=== PATIENT | male | born 1985 | race Caucasian/White ===

== ENCOUNTER 2017-07-03 14:18 | Outpatient (CLI) | payer OTHER ==
--- NOTE | 2017-07-03 17:05 | MRI Report ---
EXAM: RIGHT ELBOW MRI WITHOUT CONTRAST EXAM DATE: 07/03/2017 03:41 PM. CLINICAL HISTORY: Right elbow pain for 1.5 years. COMPARISON: None. TECHNIQUE: Multiplanar, multisequence T1-weighted and fluid-sensitive sequences of the elbow without contrast. Other: None. FINDINGS: Bones: No fractures or subluxations. No marrow edema. No bone lesions. Articular Cartilage: Unremarkable. Ligaments: The ulnar collateral, lateral ulnar collateral, radial collateral, and annular ligaments a re intact. Tendons: The common flexor and extensor tendons are unremarkable. The distal biceps, brachialis, and triceps tendons are unremarkable. Musculature: No edema or fatty atrophy. Other: The cubital tunnel and ulnar nerve are unremarkable. No effusion. The subcutaneous tissues are unremarkable. IMPRESSION: 1. Unremarkable MRI of the right elbow. No evidence of tendon or ligament injury. [facility]CUL[facility] SECTION Referring Provider Line: [phone] SITE ID: [id number]
== END 2017-07-03 14:19 | disposition home or self-care (01) ==
LOC: DI 14:18
PROVIDERS: ATTEND Orthopaedic Surgery
DX: M25.521 Pain in right elbow (principal)

== ENCOUNTER 2017-08-23 07:48 | Emergency (ER) | payer OTHER ==
[2017-08-23 08:00] VITALS: BP 142/101
--- NOTE | 2017-08-23 08:05 | ED Physician Documentation ---
PD HPI GI BLEED - Stated complaint Stated Complaint: BLOOD IN STOOL - Chief complaint Chief Complaint: Abd Pain - History obtained from History obtained from: Patient - History of Present Illness Timing - onset: Enter time (629), Today Timing - duration: Minutes Timing - details: Abrupt onset, Now resolved Associated symptoms: BRBPR Contributing factors: No: Sick contact, Alcohol use, Aspirin use, NSAID use, Anticoagulated Improved by: BM Similar symptoms before: No diagnosis Recently seen: Not recently seen - Additional information Additional information: Previously well 32-year-old male has come to the emergency department today after having a bowel movement work with a fair amount of blood in the commode. He has had some blood previously on the toilet paper periodically and nothing persistent and nothing of a significant quantity. Today he had blood in the toilet and on the paper. He does not have hemorrhoids that he knows of but he does feel that it is warm and tender back there. Review of Systems Constitutional: denies: Fever Eyes: denies: Decreased vision Ears: denies: Ear pain Nose: denies: Congestion Throat: denies: Sore throat Respiratory: denies: Cough GI: reports: Bloody / black stool. denies: Abdominal Pain, Nausea, Vomiting, Constipation, Diarrhea : denies: Dysuria, Frequency PD PAST MEDICAL HISTORY - Allergies Allergies/Adverse Reactions: Allergies Allergy/AdvReac Type Severity Reaction Status Date / Time No Known Drug Allergies Allergy Verified 08/23/17 08:00 PD ED PE NORMAL - Vitals Vital signs reviewed: Yes (Hypertensive) - General General: Alert and oriented X 3, No acute distress, Well developed/nourished - HEENT HEENT: Atraumatic, PERRL, EOMI - Respiratory Respiratory: No respiratory distress - Rectal Rectal: Other (There are no external hemorrhoids or hemorrhoidal tags. The spectral torn is normal and the vault is empty. There are 2 internal hemorrhoids that are engorged and there is no blood in the vault. ) - Derm Derm: Normal color, Warm and dry, No rash - Extremities Extremities: No deformity, No edema - Neuro Neuro: Alert and oriented X 3, No motor deficit, No sensory deficit, Normal speech Eye Opening: Spontaneous Motor: Obeys Commands Verbal: Oriented GCS Score: 15 - Psych Psych: Normal mood, Normal affect Results - Vitals Vitals: Vital Signs - 24 hr 08/23/17 07:50 Temperature 36.4 C L Heart Rate 81 Respiratory 18 Rate Blood Pressure 142/101 H O2 Saturation 98 Oxygen O2 Source Room air - Labs Labs: Laboratory Tests 08/23/17 08/23/17 08:16 08:16 WBC 7.9 RBC 5.59 Hgb 17.3 Hct 49.6 MCV 88.9 MCH 31.0 MCHC 34.8 RDW 13.6 Plt Count 214 MPV 8.0 Neut # 4.4 Lymph # 2.6 Mower # 0.7 Eos # 0.1 Baso # 0.1 Absolute Nucleated RBC 0.01 Nucleated RBC % 0.1 Sodium 139 Potassium 4.2 Chloride 101 Carbon Dioxide 26 Anion Gap 12.0 BUN 17 Creatinine 1.1 Estimated GFR (MDRD) 79 L Glucose 91 Calcium 9.8 Total Bilirubin 1.0 AST 18 ALT 26 Alkaline Phosphatase 44 Total Protein 7.9 Albumin 4.5 Globulin 3.4 Albumin/Globulin Ratio 1.3 Lipase 21 L PD MEDICAL DECISION MAKING - ED course Complexity details: reviewed results, re-evaluated patient, considered differential, d/w patient ED course: 32-year-old male with rectal bleeding that is resolved now has engorged internal hemorrhoids. His blood counts are checked. Departure - Departure Disposition: 01 Home, Self Care Clinical Impression: Internal hemorrhoid, bleeding GI bleeding Qualifiers: GI bleed type/associated pathology: anorectal hemorrhage Qualified Code(s): K62.5 - Hemorrhage of anus and rectum Condition: Stable Instructions: ED Hematochezia Stable, ED Hemorrhoids Follow-Up: JEFF William [Provider Group]
[2017-08-23 08:30] LABS: BASOPHILS # (AUTO) 0.1 10^3/uL (0.0-0.1); BASOPHILS % (AUTO) 0.9 %; EOSINOPHILS # (AUTO) 0.1 10^3/uL (0.0-0.7); HGB - HEMOGLOBIN 17.3 g/dL (14.0-18.0); LYMPHOCYTES # (AUTO) 2.6 10^3/uL (1.5-3.5); LYMPHOCYTES % (AUTO) 32.7 %; MEAN CORPUSCULAR HGB CONC 34.8 g/dL (32.0-36.0); MEAN CORPUSCULAR VOLUME 88.9 fL (80.0-94.0); MONOCYTES # (AUTO) 0.7 10^3/uL (0.0-1.0); MONOCYTES % (AUTO) 8.9 %; NEUTROPHILS # (AUTO) 4.4 10^3/uL (1.5-6.6); NEUTROPHILS % (AUTO) 56.5 %; PLT - PLATELET COUNT 214 10^3/uL (130-450); RED BLOOD COUNT 5.59 10^6/uL (4.70-6.10); RED CELL DISTRIBUTION WIDTH 13.6 % (12.0-15.0); WHITE BLOOD COUNT 7.9 x10^3/uL (4.8-10.8)
[2017-08-23 08:41] LABS: ALBUMIN 4.5 g/dL (3.2-5.5); ALBUMIN/GLOBULIN RATIO 1.3 (1.0-2.2); CALCIUM 9.8 mg/dL (8.5-10.3); CREATININE 1.1 mg/dL (0.6-1.2); TOTAL PROTEIN 7.9 g/dL (6.7-8.2)
== END 2017-08-23 09:49 | disposition home or self-care (01) ==
LOC: ED 07:48
DX: K64.8 Other hemorrhoids (principal); K62.5 Hemorrhage of anus and rectum
CPT/HCPCS: 36415; 80053; 83690; 85025; 99283

== ENCOUNTER 2018-01-11 08:01 | Emergency (ER) | payer OTHER ==
[2018-01-11 09:35] LABS: BASOPHILS % (AUTO) 0.4 %; EOSINOPHILS % (AUTO) 0.1 %; HGB - HEMOGLOBIN 17.1 g/dL (14.0-18.0); LYMPHOCYTES # (AUTO) 0.9 10^3/uL (1.5-3.5); LYMPHOCYTES % (AUTO) 9.5 %; MEAN CORPUSCULAR HEMOGLOBIN 30.9 pg (27.0-31.0); MEAN CORPUSCULAR HGB CONC 34.5 g/dL (32.0-36.0); MEAN CORPUSCULAR VOLUME 89.5 fL (80.0-94.0); MEAN PLATELET VOLUME 7.8 fL (7.4-11.4); MONOCYTES # (AUTO) 0.7 10^3/uL (0.0-1.0); MONOCYTES % (AUTO) 7.9 %; NEUTROPHILS # (AUTO) 7.4 10^3/uL (1.5-6.6); NEUTROPHILS % (AUTO) 82.1 %; PLT - PLATELET COUNT 158 10^3/uL (130-450); RED BLOOD COUNT 5.52 10^6/uL (4.70-6.10); RED CELL DISTRIBUTION WIDTH 13.1 % (12.0-15.0); WHITE BLOOD COUNT 9.1 x10^3/uL (4.8-10.8)
[2018-01-11] MEDS ORDERED: ONDANSETRON 4 MG/2 ML VIAL IVP STA (09:51)
[2018-01-11] MEDS ORDERED: SODIUM CHLORIDE 0.9% 1,000 ML IV ONE ×2 (09:51→10:57)
[2018-01-11 09:52] LABS: ALBUMIN 4.3 g/dL (3.2-5.5); ALBUMIN/GLOBULIN RATIO 1.3 (1.0-2.2); BILIRUBIN,TOTAL 1.4 mg/dL (0.2-1.0); CALCIUM 9.2 mg/dL (8.5-10.3); CREATININE 1.1 mg/dL (0.6-1.2); TOTAL PROTEIN 7.6 g/dL (6.7-8.2)
--- NOTE | 2018-01-11 09:54 | ED Physician Documentation ---
History of Present Illness - Stated complaint Stated Complaint: FEVER/VOMITING/NAUSEA - Chief complaint Chief Complaint: General - History obtained from History obtained from: Patient - History of Present Illness Timing: Yesterday - Additonal information Additional information: The patient is a 32-year-old [employer] male who presents with fever, nausea, and vomiting that started yesterday. He felt dizzy yesterday, and symptoms continue this morning. He denies diarrhea, dysuria, cough, or sore throat. He reports associated headache. He denies history of similar symptoms in the past. Review of Systems Constitutional: reports: Fever Ears: denies: Tinnitus/ringing Nose: denies: Congestion Throat: denies: Oral lesions / sores Cardiac: denies: Chest pain / pressure Respiratory: denies: Dyspnea, Cough GI: reports: Nausea, Vomiting. denies: Abdominal Pain, Diarrhea : denies: Dysuria Skin: denies: Rash Musculoskeletal: denies: Back pain, Extremity pain Neurologic: reports: Headache. denies: Focal weakness, Numbness PD PAST MEDICAL HISTORY - Past Medical History Cardiovascular: None Respiratory: None Endocrine/Autoimmune: None - Past Surgical History Past Surgical History: No Ortho: Other - Present Medications Home Medications: Ambulatory Orders Medication Instructions Recorded Confirmed Promethazine [Phenergan] 25 - 50 mg PO Q6H PRN #10 tab 01/11/18 - Allergies Allergies/Adverse Reactions: Allergies Allergy/AdvReac Type Severity Reaction Status Date / Time No Known Drug Allergies Allergy Verified 01/11/18 08:21 - Social History Does the pt smoke?: No Smoking Status: Never smoker Does the pt drink ETOH?: Yes Does the pt have substance abuse?: No - Immunizations Immunizations are current?: Yes PD ED PE NORMAL - Vitals Vital signs reviewed: Yes (borderline hypertension) - General General: Alert and oriented X 3, Well developed/nourished - HEENT HEENT: Atraumatic, Moist mucous membranes, Pharynx benign - Neck Neck: Supple, no meningeal sign, No adenopathy, No JVD - Cardiac Cardiac: RRR, No murmur - Respiratory Respiratory: No respiratory distress - Abdomen Abdomen: Soft, Non tender - Back Back: No CVA TTP - Derm Derm: No rash - Extremities Extremities: No edema, No calf tenderness / cord - Neuro Neuro: Alert and oriented X 3, No motor deficit, Normal speech Results - Vitals Vitals: Oxygen O2 Source Room air - Labs Labs: Laboratory Tests 01/11/18 01/11/18 01/11/18 09:23 09:23 11:10 WBC 9.1 RBC 5.52 Hgb 17.1 Hct 49.4 MCV 89.5 MCH 30.9 MCHC 34.5 RDW 13.1 Plt Count 158 MPV 7.8 Neut # (Auto) 7.4 H Lymph # (Auto) 0.9 L [place] # (Auto) 0.7 Eos # (Auto) 0.0 Baso # (Auto) 0.0 Absolute Nucleated RBC 0.00 Nucleated RBC % 0.0 Sodium 135 Potassium 3.7 Chloride 100 L Carbon Dioxide 25 Anion Gap 10.0 BUN 13 Creatinine 1.1 Estimated GFR (MDRD) 79 L Glucose 95 Calcium 9.2 Total Bilirubin 1.4 H AST 24 ALT 36 Alkaline Phosphatase 50 Total Protein 7.6 Albumin 4.3 Globulin 3.3 Albumin/Globulin Ratio 1.3 Lipase 18 L Urine Color DARK YELLOW Urine Clarity CLEAR Urine pH 6.0 Ur Specific [place] 1.025 Urine Protein NEGATIVE Urine Glucose (UA) NEGATIVE Urine Ketones NEGATIVE Urine Occult Blood NEGATIVE Urine Nitrite NEGATIVE Urine Bilirubin NEGATIVE Urine Urobilinogen 0.2 (NORMAL) Ur Leukocyte Esterase NEGATIVE Ur Microscopic Review NOT INDICATED Urine Culture Comments NOT INDICATED PD MEDICAL DECISION MAKING - ED course Complexity details: reviewed results, re-evaluated patient, considered differential, d/w patient ED course: The patient's presentation is most consistent with acute viral gastroenteritis with associated volume depletion from vomiting. His presentation does not suggest an acute abdomen, bowel obstruction, or pancreatitis. CBC reveals a normal white count of 9.1. Chemistry panel is unremarkable, and urinalysis is negative. Treatment in the emergency department included administration of normal saline 2 L IV, and ondansetron 4 mg IV. His symptoms resolved with the above treatment. He is being discharged with a prescription for Phenergan. I discussed with him the expected course of illness, symptomatic treatment and outpatient follow-up, as well as potentially worrisome signs and symptoms that should prompt reevaluation in the emergency department. - Sepsis Event Vital Signs: Oxygen O2 Source Room air Departure - Departure Disposition: 01 Home, Self Care Clinical Impression: Viral gastroenteritis, Dehydration Condition: Stable Instructions: ED Gastroenteritis Viral Follow-Up: LUCHO KEN [Physician No Access] - Prescriptions: Promethazine [Phenergan] 25 - 50 mg PO Q6H PRN #10 tab PRN Reason: Nausea / Vomiting Comments: Drink plenty of fluids. You can use Phenergan as prescribed if needed for nausea. You can use ibuprofen, up to 800 mg 3 times daily if needed for fever or discomfort. Follow up with your primary physician within 1 week if not completely resolved. Return to the emergency department if you develop persistent vomiting, recurrent dehydration, increasing abdominal pain, or otherwise worsening symptoms. Forms: Activity restrictions Discharge Date/Time: 01/11/18 13:18
[2018-01-11 11:18] LABS: GLUCOSE, URINE (UA) NEGATIVE (NEGATIVE); KETONES,URINE (UA) NEGATIVE (NEGATIVE); LEUKOCYTE ESTERASE, URINE NEGATIVE (NEGATIVE); NITRITE,URINE NEGATIVE (NEGATIVE); OCCULT BLOOD,URINE NEGATIVE (NEGATIVE); PROTEIN,URINE NEGATIVE (NEGATIVE); UROBILINOGEN,URINE 0.2 (NORMAL) E.U./dL (NORMAL)
[2018-01-11 11:27] LABS: CLARITY,URINE CLEAR (CLEAR)
[2018-01-11 11:28] LABS: BILIRUBIN,URINE NEGATIVE (NEGATIVE); ICTOTEST,URINE NEGATIVE
[2018-01-11 12:10] VITALS: BP 135/67
== END 2018-01-11 13:18 | disposition home or self-care (01) ==
LOC: ED 08:01
DX: E86.0 Dehydration (principal); A08.4 Viral intestinal infection, unspecified
CPT/HCPCS: 36415; 80053; 81001; 81003; 83690; 85025; 87086; 96361; 96374; 99283; 99284

== ENCOUNTER 2018-06-08 11:29 | Emergency (ER) | payer OTHER ==
--- NOTE | 2018-06-08 13:59 | ED Physician Documentation ---
PD HPI DYSPNEA - Stated complaint Stated Complaint: SOA - Chief complaint Chief Complaint: Resp - History obtained from History obtained from: Patient - History of Present Illness Timing - onset: How many weeks ago (1.5) Timing - onset during: Exertion Timing - duration: Seconds Timing - details: Gradual onset, Intermittant Pain level max: 0 Pain level now: 0 Inciting event(s): URI. No: Out of meds, Exercise, Exposure (ie smoke), FB / choking, Immobilization/travel, Emotional event Improved by: Rest Worsened by: Exertion Associated symptoms: Cough. No: Fever, Hemoptysis, Wheezing, Chest pain / discomfort, Palpitations, Diaphoresis, Bilateral edema, Unilateral edema Similar symptoms before: Diagnosis (Bronchitis) Recently seen: Clinic (Seen at the [facility] a week ago and had a chest x- ray no pneumonia.) - Additional information Additional information: 33-year-old male with no past medical or surgical history here with complaint of exertional shortness of breath the past 1-1/2 weeks.Stated worseWhen coughing dark yellowish phlegm.Claims he also had a fever week ago of 101. And body aches.Denies any trauma, travel, sick contact nor immobility. Patient was seen at the [facility] had a chest x-ray which did not show pneumonia but was told he may have bronchitis.Denies smoking Review of Systems Ten Systems: 10 systems reviewed and negative Constitutional: reports: Fever, Myalgias Nose: reports: Rhinorrhea / runny nose Throat: reports: Sore throat Cardiac: denies: Chest pain / pressure Respiratory: reports: Dyspnea, Cough GI: denies: Abdominal Pain, Nausea, Vomiting Skin: denies: Rash PD PAST MEDICAL HISTORY - Past Medical History Cardiovascular: None Respiratory: None Endocrine/Autoimmune: None - Past Surgical History Past Surgical History: No Ortho: Other - Present Medications Home Medications: Ambulatory Orders Medication Instructions Recorded Confirmed Acetaminophen [Tylenol] 650 mg PO Q6H PRN 06/08/18 06/08/18 Acetaminophen/Cod 300/30 [Tylenol 1 each PO Q8H #10 tablet 06/08/18 #3] Amoxicillin 1,000 mg PO Q8HR 06/08/18 06/08/18 Benzonatate 100 mg PO TID 06/08/18 06/08/18 Fluticasone [Flonase] 1 sprays JEFF BID 06/08/18 06/08/18 Ipratropium/Albuterol [Combivent 1 puffs IH Q3HR 06/08/18 06/08/18 Respimat] Meloxicam 15 mg PO DAILY 06/08/18 06/08/18 Pseudoephedrine [Sudafed] 60 mg PO Q6H 06/08/18 06/08/18 - Allergies Allergies/Adverse Reactions: Allergies Allergy/AdvReac Type Severity Reaction Status Date / Time No Known Drug Allergies Allergy Verified 06/08/18 11:36 - Social History Does the pt smoke?: No Smoking Status: Never smoker Does the pt drink ETOH?: Yes Does the pt have substance abuse?: No - Immunizations Immunizations are current?: Yes PD ED PE NORMAL - Vitals Vital signs reviewed: Yes - General General: Alert and oriented X 3, No acute distress, Well developed/nourished - HEENT HEENT: Moist mucous membranes, Pharynx benign - Neck Neck: Supple, no meningeal sign - Cardiac Cardiac: RRR, No murmur - Respiratory Respiratory: No respiratory distress, Clear bilaterally - Abdomen Abdomen: Normal bowel sounds, Soft, Non tender, Non distended - Derm Derm: Warm and dry - Extremities Extremities: No deformity - Neuro Neuro: Alert and oriented X 3 - Psych Psych: Normal mood, Normal affect Results - Vitals Vitals: Vital Signs - 24 hr 06/08/18 11:34 Temperature 36.5 C Heart Rate 90 Respiratory 18 Rate Blood Pressure 146/93 H O2 Saturation 100 Oxygen O2 Source Room air - Labs Labs: Laboratory Tests 06/08/18 13:53 Influenza A (Rapid) Negative Influenza B (Rapid) Negative PD MEDICAL DECISION MAKING - ED course Complexity details: reviewed results, re-evaluated patient ([id number] in no acute distress and nontoxic appearing but has intermittent dry cough. Lungs are clear. Patient inform of test results. He stated that he takes NyQuil at nighttime but it is not helping. Will discharge on Tylenol No. 3 and also instructed to take Benadryl for environmental allergies and help him sleep at night.), considered differential (Bronchitis, pneumonia, influenza, URI), d/w patient Departure - Departure Disposition: 01 Home, Self Care Clinical Impression: Bronchitis Condition: Good Instructions: ED Upper Resp Infec No Abx Tx, ED Viral Syndrome Prescriptions: Acetaminophen/Cod 300/30 [Tylenol #3] 1 each PO Q8H #10 tablet
--- NOTE | 2018-06-08 14:15 | XRAY Report ---
Reason: chest pain Procedure Date: 06/08/2018 Accession Number: [id number] / [id number] Procedure: XR - Chest 1 View X-Ray CPT Code: 74990 FULL RESULT: EXAM: CHEST RADIOGRAPHY EXAM DATE: 06/08/2018 02:00 PM. CLINICAL HISTORY: Cough and chest pain for several days. COMPARISON: None. TECHNIQUE: 1 view. FINDINGS: Lungs/Pleura: No focal opacities evident. No pleural effusion. No pneumothorax. Mediastinum: Within exam limitations, the cardiomediastinal contour is normal. Other: None. IMPRESSION: Normal single view chest. [facility]
[2018-06-08 15:33] VITALS: BP 125/84
== END 2018-06-08 15:33 | disposition home or self-care (01) ==
LOC: ED 11:29
DX: Z79.1 Long term (current) use of non-steroidal anti-inflammatories (NSAID) (principal); J40 Bronchitis, not specified as acute or chronic
CPT/HCPCS: 71045; 87275; 87276; 99283

== ENCOUNTER 2018-08-15 08:36 | Outpatient (CLI) | payer OTHER ==
--- NOTE | 2018-08-15 14:25 | MRI Report ---
Reason: PAIN IN LEFT SHOULDER,PAIN IN RIGHT ARM Procedure Date: 08/15/2018 Accession Number: [id number] / [id number] Procedure: MRI - Cervical Spine W/O CPT Code: FULL RESULT: MRI CERVICAL SPINE WITHOUT CONTRAST INDICATION: 33-year-old male. Left shoulder pain after a fall. Unable to raise arm above head. Also complains of pain in right arm. TECHNIQUE: 1. Sagittal STIR, T1 and T2. 2. Axial T1, T2 and T2* COMPARISON: None. FINDINGS: There is straightening of the cervical alignment with complete absence of typical lordosis. There appears to be a very minor acute kyphosis with apex at the C5-C6 disk level. Alignment is otherwise unremarkable. There is absence of normal T2 signal from the C5-C6 disk, confirming disk degeneration. There appears to be at least partial absence of normal T2 signal from the C2-C3 and C3-C4 disks suggesting at least early disk degeneration. The C4-C5, C6-C7 and C7-T1 disks appear relatively well hydrated. There is mild disk space narrowing at C5-C6. The disk space heights are otherwise relatively preserved. There is mild anterior wedging of the T1 vertebral body, consistent with the sequela of old healed endplate compression fracture. The vertebral body heights are otherwise maintained. The marrow signal intensity is unremarkable. Axial images: C2-C3: No disk herniation or spinal stenosis. The neural foramina are widely patent. C3-C4: No disk herniation or spinal stenosis. The neural foramina appear widely patent. C4-C5: No disk herniation or spinal stenosis. The neural foramina appear widely patent. C5-C6: Broad-based posterior extrusion projecting into the spinal canal for up to about 2.5 mm. Mass-effect on the ventral aspect of the thecal sac. The CSF ventral to the cord is almost completely effaced. There is CSF space dorsal to the cord without high-grade spinal stenosis. However, there does appear to be some deformity of the cord with minor flattening of the ventral surface in the midline. This suggests the possibility of minor cord impingement. Small uncovertebral osteophytes that give rise to very minimal foraminal narrowing. C6-C7: No disk herniation or spinal stenosis. Small left uncovertebral osteophyte. No significant foraminal encroachment. C7-T1: No disk herniation or spinal stenosis. The neural foramina appear widely patent. The spinal cord has a normal signal intensity throughout. There is no abnormal STIR hyperintensity within the imaged paraspinous soft tissues to suggest the possibility of recent ligamentous or other soft tissue injury. IMPRESSION: 1. There is absence of normal cervical lordosis. A very mild acute kyphosis is seen centered at the C5-C6 disk level. These changes are probably positional. Neck muscle spasm could also cause this appearance. 2. Degenerative C5-C6 disk with broad-based posterior extrusion. There is associated mass-effect on the ventral aspect of the thecal sac. The CSF ventral cord is almost completely effaced. There is CSF space dorsal to the cord without high-grade spinal stenosis. However, there does appear to be some minimal contour deformity of the cord with slight flattening of the ventral surface in the midline. This suggests the possibility of minor cord impingement. No abnormal T2 hyperintensity is demonstrated in the cord. 3. No other significant cervical spine pathology is demonstrated. In particular, no significant foraminal stenosis is demonstrated and there is no evidence of cervical nerve root impingement. 4. The history of recent fall is noted. There is no evidence of acute bone or soft tissue injury.
== END 2018-08-15 08:37 | disposition home or self-care (01) ==
LOC: DI 08:36
PROVIDERS: ATTEND Nurse Practitioner Family
DX: M50.122 Cervical disc disorder at C5-C6 level with radiculopathy (principal); M40.202 Unspecified kyphosis, cervical region; M25.78 Osteophyte, vertebrae
CPT/HCPCS: 72141

== ENCOUNTER 2018-08-28 11:03 | Emergency (ER) | payer OTHER ==
[2018-08-28] MEDS ORDERED: ONDANSETRON 4 MG/2 ML VIAL IVP STA (12:16)
[2018-08-28] MEDS ORDERED: SODIUM CHLORIDE 0.9% 1,000 ML IV STA (12:16)
--- NOTE | 2018-08-28 12:29 | ED Physician Documentation ---
PD HPI NVD - Stated complaint Stated Complaint: N/V/D - Chief complaint Chief Complaint: Abd Pain - History obtained from History obtained from: Patient - History of Present Illness Timing - onset: Yesterday Timing - duration: Days (2) Timing - details: Gradual onset Pain level max: 6 Pain level now: 4 Associated symptoms: Fever (subjective), Abdominal pain (crampy, diffuse). No: Chest pain, Hematemesis, Melena, Hematochezia, Dizzy, Near syncope / syncope Contributing factors: Sick contact (several other people at a [email or web address] with same) Improved by: Vomiting Worsened by: Eating Recently seen: Not recently seen - Additonal information Additional information: 33 year old male with vomiting and diarrhea after attending a [email or web address]. Several others with same. No recent travel or abx. Review of Systems Ten Systems: 10 systems reviewed and negative Constitutional: reports: Chills Throat: denies: Sore throat Cardiac: denies: Chest pain / pressure Respiratory: denies: Cough GI: reports: Vomiting, Diarrhea Skin: denies: Rash Musculoskeletal: denies: Neck pain, Back pain Neurologic: denies: Headache PD PAST MEDICAL HISTORY - Past Medical History Past Medical History: No Cardiovascular: None Respiratory: None Neuro: None Endocrine/Autoimmune: None GI: None : None HEENT: None Psych: None Musculoskeletal: None Derm: None - Past Surgical History Past Surgical History: Yes Ortho: Other - Present Medications Home Medications: Ambulatory Orders Medication Instructions Recorded Confirmed Acetaminophen [Tylenol] 650 mg PO Q6H PRN 06/08/18 06/08/18 Acetaminophen/Cod 300/30 [Tylenol 1 each PO Q8H #10 tablet 06/08/18 #3] Amoxicillin 1,000 mg PO Q8HR 06/08/18 06/08/18 Benzonatate 100 mg PO TID 06/08/18 06/08/18 Fluticasone [Flonase] 1 sprays JEFF BID 06/08/18 06/08/18 Ipratropium/Albuterol [Combivent 1 puffs IH Q3HR 06/08/18 06/08/18 Respimat] Meloxicam 15 mg PO DAILY 06/08/18 06/08/18 Pseudoephedrine [Sudafed] 60 mg PO Q6H 06/08/18 06/08/18 Ondansetron Odt [Zofran] 4 mg TL Q6H PRN #10 tablet 08/28/18 - Allergies Allergies/Adverse Reactions: Allergies Allergy/AdvReac Type Severity Reaction Status Date / Time No Known Drug Allergies Allergy Verified 08/28/18 11:10 - Social History Does the pt smoke?: No Smoking Status: Former smoker Does the pt drink ETOH?: Yes ETOH Use: Beer Does the pt have substance abuse?: No - Immunizations Immunizations are current?: Yes - POLST Patient has POLST: No PD ED PE NORMAL - Vitals Vital signs reviewed: Yes - General General: Alert and oriented X 3, No acute distress - HEENT HEENT: Moist mucous membranes - Neck Neck: Supple, no meningeal sign - Cardiac Cardiac: RRR, Strong equal pulses - Respiratory Respiratory: No respiratory distress, Clear bilaterally - Abdomen Abdomen: Soft, Non tender, Non distended - Derm Derm: Warm and dry, No rash - Extremities Extremities: No edema, No calf tenderness / cord - Neuro Neuro: Alert and oriented X 3 - Psych Psych: Normal mood, Normal affect Results - Vitals Vitals: Vital Signs - 24 hr 08/28/18 11:08 Temperature 36.8 C Heart Rate 126 H Respiratory 18 Rate Blood Pressure 125/92 H O2 Saturation 99 Oxygen O2 Source Room air - Labs Labs: Laboratory Tests 08/28/18 08/28/18 08/28/18 12:40 12:40 12:55 WBC 6.9 RBC 5.33 Hgb 16.2 Hct 46.3 MCV 86.8 MCH 30.4 MCHC 35.0 RDW 13.2 Plt Count 157 MPV 8.0 Neut # (Auto) 6.0 Lymph # (Auto) 0.6 L [place] # (Auto) 0.3 Eos # (Auto) 0.0 Baso # (Auto) 0.0 Absolute Nucleated RBC 0.00 Nucleated RBC % 0.1 Sodium 137 Potassium 3.7 Chloride 104 Carbon Dioxide 26 Anion Gap 7.0 BUN 12 Creatinine 0.9 Estimated GFR (MDRD) 98 Glucose 99 Calcium 8.5 Total Bilirubin 1.3 H AST 24 ALT 40 Alkaline Phosphatase 49 Total Protein 7.3 Albumin 3.9 Globulin 3.4 Albumin/Globulin Ratio 1.1 Lipase 22 Urine Color YELLOW Urine Clarity CLEAR Urine pH 6.5 Ur Specific [place] 1.025 Urine Protein NEGATIVE Urine Glucose (UA) NEGATIVE Urine Ketones NEGATIVE Urine Occult Blood NEGATIVE Urine Nitrite NEGATIVE Urine Bilirubin NEGATIVE Urine Urobilinogen 2 H Ur Leukocyte Esterase NEGATIVE Ur Microscopic Review NOT INDICATED Urine Culture Comments NOT INDICATED PD MEDICAL DECISION MAKING - ED course Complexity details: reviewed results, re-evaluated patient, considered differential, d/w patient ED course: 33-year-old male with what appears to be a viral gastroenteritis. Feels better after IV fluids and Zofran. Tolerating p.o. without difficulty. We will continue supportive care and follow-up with his doctor. Patient is well- appearing, nontoxic. Afebrile. Patient counseled regarding signs and symptoms for which I believe and urgent re-evaluation would be necessary. Patient with good understanding of and agreement to plan and is comfortable going home at this time This document was made in part using voice recognition software. While efforts are made to proofread this document, sound alike and grammatical errors may occur. Departure - Departure Disposition: 01 Home, Self Care Clinical Impression: Viral gastroenteritis Condition: Good Instructions: ED Gastroenteritis Viral Follow-Up: LUCHO KEN [Primary Care Provider] - Within 1 week Prescriptions: Ondansetron Odt [Zofran] 4 mg TL Q6H PRN #10 tablet PRN Reason: Nausea / Vomiting Comments: Return if you worsen. Drink plenty of fluids and rest. Forms: Activity restrictions
[2018-08-28 12:44] LABS: BASOPHILS % (AUTO) 0.4 %; EOSINOPHILS % (AUTO) 0.3 %; HGB - HEMOGLOBIN 16.2 g/dL (14.0-18.0); LYMPHOCYTES # (AUTO) 0.6 10^3/uL (1.5-3.5); MEAN CORPUSCULAR HEMOGLOBIN 30.4 pg (27.0-31.0); MEAN CORPUSCULAR VOLUME 86.8 fL (80.0-94.0); MONOCYTES # (AUTO) 0.3 10^3/uL (0.0-1.0); NEUTROPHILS % (AUTO) 86.3 %; PLT - PLATELET COUNT 157 10^3/uL (130-450); RED BLOOD COUNT 5.33 10^6/uL (4.70-6.10); RED CELL DISTRIBUTION WIDTH 13.2 % (12.0-15.0); WHITE BLOOD COUNT 6.9 x10^3/uL (4.8-10.8)
[2018-08-28 13:02] LABS: ALBUMIN 3.9 g/dL (3.2-5.5); ALBUMIN/GLOBULIN RATIO 1.1 (1.0-2.2); BILIRUBIN,TOTAL 1.3 mg/dL (0.2-1.0); CALCIUM 8.5 mg/dL (8.5-10.3); CREATININE 0.9 mg/dL (0.6-1.2); TOTAL PROTEIN 7.3 g/dL (6.7-8.2)
[2018-08-28 13:04] LABS: BILIRUBIN,URINE NEGATIVE (NEGATIVE); GLUCOSE, URINE (UA) NEGATIVE (NEGATIVE); KETONES,URINE (UA) NEGATIVE (NEGATIVE); LEUKOCYTE ESTERASE, URINE NEGATIVE (NEGATIVE); NITRITE,URINE NEGATIVE (NEGATIVE); OCCULT BLOOD,URINE NEGATIVE (NEGATIVE); PH,URINE 6.5 PH (5.0-7.5); PROTEIN,URINE NEGATIVE (NEGATIVE); UROBILINOGEN,URINE 2 E.U./dL (NORMAL)
[2018-08-28 13:08] LABS: CLARITY,URINE CLEAR (CLEAR)
[2018-08-28 13:50] VITALS: BP 138/81
== END 2018-08-28 14:07 | disposition home or self-care (01) ==
LOC: ED 11:03
DX: A08.4 Viral intestinal infection, unspecified (principal); Z87.891 Personal history of nicotine dependence
CPT/HCPCS: 36415; 80053; 81001; 81003; 83690; 85025; 87086; 96361; 96374; 99283